=== PATIENT | male | born 1985 | race Caucasian/White ===

== ENCOUNTER 2020-10-19 11:26 | Emergency (ER) | payer OTHER, MEDICAID, SELFPAY ==
[2020-10-19 11:27] VITALS: BP 141/102; PULSE 109; RESP 18; TEMP 36.1; O2SAT 98; BMI 29.4
--- NOTE | 2020-10-19 11:38 | EX.ED.GENINJ ---
HPI History of Present Illness Chief Complaint: Burn Narrative Narrative: 34-year-old male presenting with left hand pain on his palm. He states that prior to arrival he picked up a hot sheets out of the oven. Recently injured the palmar surface of his hand. He does not have any numbness. He states his tetanus has been updated in the last 5 years. He states he has ADHD and hypertension. He has been otherwise well. [facility] Medical History ADHD (attention deficit hyperactivity disorder) Hypertension Home Medications stomdprkca-jvfknmwhudsob-olrq 1 - 2 tab PO Q4H PRN PRN 05/23/16 [History Last Taken Unknown] clonidine HCl 0.1 mg PO BID 10/19/20 [History Last Taken Unknown] dextroamphetamine-amphetamine [Adderall] 20 mg PO BID 10/19/20 [History Last Taken Unknown] Allergy/AdvReac Type Severity Reaction Status Date / Time No Known Allergies Allergy Verified 10/19/20 11:27 Social History Smoking Status: Current every day smoker ROS ROS ED Constitutional Constitutional ED: Denies chills, fever(s) or sweats Eyes Eyes: Denies blurry vision or change in vision ENT ENT ED: Denies ear pain, rhinorrhea or sore throat Cardiovascular Cardiovascular: Denies chest pain, palpitations or racing heartbeat Respiratory/Chest Respiratory/Chest: Denies cough, dyspnea or sputum Gastrointestinal Gastrointestinal: Denies abdominal pain, constipation, diarrhea or vomiting Genitourinary Genitourinary ED: Denies dysuria, hematuria or urinary frequency Musculoskeletal Musculoskeletal: Denies arthralgias, myalgias or neck pain Integumentary Reports other Details: Burn to left palm ; Denies abscess, Abrasions or rash Neurologic Neurologic: Denies headache(s), paresthesias or weakness Psychiatric Psychiatric: Denies anxiety, depression, suicidal ideation or suicidal thoughts Endocrine Endocrinology: Denies polydipsia or polyuria EXAM Physical Exam Const Vital Signs: 10/19/20 11:27 Temperature 97.0 F L Temperature Source Temporal Pulse Rate 109 H Respiratory Rate 18 Blood Pressure 141/102 H Blood Pressure Mean 115 Pulse Ox 98 Oxygen Delivery Method Nasal Cannula General Appearance ED: Negative for pallor HEENT Reports normocephalic, head/scalp atraumatic and moist mucous membranes atraumatic Eyes PERRL and EOMs intact bilaterally Neck no lymphadenopathy and supple Chest Wall inspection of chest normal and palpation of chest normal Resp normal respiratory effort and clear to auscultation bilaterally Auscultation: Negative for rales, rhonchi or wheezes Cardio regular rate and regular rhythm GI normal to inspection, nondistended, normoactive bowel sounds and non-distended Auscultation: normoactive bowel sounds Palpation: soft Narrative: Deferred Back/Spine no CVA tenderness General Back: Negative for CVA tenderness Cervical Spine: Negative for cervical spine tenderness Extremity normal to inspection Extremity Narrative: Tenderness over left palm. General Extremety ED: Yes tenderness Neuro oriented x3 and CN's II-XII intact bilaterally Sensorium / Orientation: alert Motor Exam: strength 5/5 throughout Psych mental status grossly normal Attitude: No agitated Skin Skin Narrative: First-degree burn noted over the left palmar surface in the proximal aspect of the first -5th digits. There are no circumferential hoff. Patient has sensation in the left palm. It is tender to palpation. Left hand neurovascular intact with brisk cap refill all 5 fingers. I General Skin Exam: Negative for jaundice or pallor MDM MDM MDM Narrative Medical decision making narrative: Patient presents with first-degree burn over the palmar surface of his left hand. He is neurovascularly intact. Patient complaining of significant pain. He was given oxycodone in the ED. He will be discharged home with instructions for follow-up with the burn center at [facility]. He was given Percocet for pain. Is given return precautions. Patient able discharge. Impression: 1. First-degree burn left hand Discharge Plan Triage Chief Complaint: Burn ED Provider: Norbert Fenton Dx/Rx/DC Orders Instructions: ED First- and Second-Degree Hoff ... Prescriptions: No Action laxbcphmfg-[id number]-jzsv 1 TABLET tablet 1 - 2 tab PO Q4H PRN PRN (Reason: Migraine Symptoms) RF: 0 clonidine HCl 0.1 mg Tablet 0.1 mg PO BID RF: 0 dextroamphetamine-amphetamine [Adderall] 20 mg Tablet 20 mg PO BID RF: 0 Primary Care Provider: Fozia Troy NP Referrals: Burn Center ([facility] [GROUP OF PHYSICIANS] - Troy,Fozia TELEPHONE STATION REPAIRER, TELEPHONE STATION REPAIRER-C [Primary Care Provider] - Disposition Disposition: Home, self care
[2020-10-19] MEDS: oxyCODONE 5 MG Tablet PO (11:45)
[2020-10-19 12:22] VITALS: BP 148/74; PULSE 94; RESP 15; O2SAT 99
== END 2020-10-19 12:23 | disposition home or self-care (01) ==
PROVIDERS: Emergency Provider Student in an Organized Health Care Education/Training Program; PCP Nurse Practitioner Adult Health
DX: T23.102A Burn of first degree of left hand, unspecified site, initial encounter (principal); X19.XXXA Contact with other heat and hot substances, initial encounter; Y93.9 Activity, unspecified; Y92.89 Other specified places as the place of occurrence of the external cause; Y99.8 Other external cause status; F17.200 Nicotine dependence, unspecified, uncomplicated; F90.9 Attention-deficit hyperactivity disorder, unspecified type; I10 Essential (primary) hypertension; Z79.899 Other long term (current) drug therapy
CPT/HCPCS: 99283